=== PATIENT | male | born 1965 | race Hispanic/Latino ===

== ENCOUNTER 2018-05-28 20:41 | Emergency (ER) | payer OTHER ==
[2018-05-28 20:53] VITALS: RESP 17
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
[2018-05-28 22:24] LABS: HEMOGLOBIN 14.6 g/dL (14.0-18.0); MEAN CELL VOLUME 85.2 fl (80.0-105.0); MEAN CORPUSCULAR HGB CONC 35.2 g/dl (31.0-37.0); MEAN PLATELET VOLUME 10.9 fl (7.0-11.0); RBC 4.87 10^6/uL (3.5-6.1); RED CELL DISTRIBUTION WIDTH 13.3 % (11.5-14.5); WHITE BLOOD COUNT 6.9 10^3/ul (4.5-11.0)
[2018-05-28 22:35] LABS: INR 0.99 (0.93-1.08); PARTIAL THROMBOPLASTIN TIME 29.2 Seconds (25.1-36.5); PROTHROMBIN TIME 11.3 SECONDS (9.4-12.5)
[2018-05-28 22:37] LABS: ALB/GLOB RATIO 1.4 (1.1-1.8); ALBUMIN 4.1 g/dL (3.0-4.8); ALT/SGPT 52 U/L (7-56); AST/SGOT 25 U/L (17-59); BLOOD UREA NITROGEN 17 mg/dL (7-21); CALCIUM 9.5 mg/dL (8.4-10.5); GFR AFRICAN-AMERICAN > 60; GFR NON-AFRICAN AMERICAN > 60
[2018-05-28 22:48] LABS: B-TYPE NATRIURETIC PEPTIDE 45.7 pg/mL (0-450); TROPONIN I < 0.01 ng/mL
[2018-05-29 01:50] VITALS: BP 148/94; PULSE 72; TEMP 98.2; O2SAT 98
--- NOTE | 2018-05-29 08:40 | RAD ---
Date of service: 05/28/2018 HISTORY: medical clearance COMPARISON: No prior. FINDINGS: LUNGS: The lungs are well inflated. No focal consolidation. . PLEURA: No significant pleural effusion identified, no pneumothorax apparent. CARDIOVASCULAR: Normal. OSSEOUS STRUCTURES: No significant abnormalities. VISUALIZED UPPER ABDOMEN: Normal. OTHER FINDINGS: None. IMPRESSION: No active pulmonary disease.
--- NOTE | 2018-05-29 09:27 | CARD ---
APPROVED REPORT Date of service: 05/28/2018 EKG Measurement Heart [id number] ND [id number] <Conclusion> Normal sinus rhythm Normal ECG
[2018-05-29 18:45] LABS: LYME IGM NEGATIVE (NEGATIVE)
[2018-05-29 18:59] LABS: LYME IGG NEGATIVE (NEGATIVE)
--- NOTE | 2018-05-29 20:11 | US ---
HISTORY: Leg pain and swelling. Evaluate for DVT PHYSICIAN(S): Watson Mercedes MD. TECHNIQUE: Duplex sonography and color-flow Doppler with graded compression were used to evaluate the deep venous systems of both lower extremities. FINDINGS: The visualized deep venous systems of both lower extremities are sonographically normal and compressible. Normal wave forms and augmentation are seen. There is no sonographic evidence for deep venous thrombosis in the visualized segments of both lower extremities. IMPRESSION: No sonographic evidence for deep venous thrombosis in the visualized segments of both lower extremities.
== END 2018-05-29 01:50 | disposition home or self-care (01) ==
LOC: MERGE 20:41 → ED 20:41
DX: M25.562 Pain in left knee (principal); M25.561 Pain in right knee

== ENCOUNTER 2018-09-29 00:47 | Emergency (ER) | payer OTHER ==
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
[2018-09-29 02:15] LABS: BASO # 0.08 K/mm3 (0.0-2.0); BASO % 1.4 % (0.0-3.0); EOS # 0.4 (0.0-0.7); EOS % 6.5 % (1.5-5.0); GRAN # 2.89 (1.4-6.5); GRAN % 51.9 % (50.0-68.0); HEMOGLOBIN 14.3 g/dL (14.0-18.0); LYMPH # 1.8 (1.2-3.4); LYMPH % 32.1 % (22.0-35.0); MEAN CORPUSCULAR HGB CONC 34.5 g/dl (31.0-37.0); MEAN PLATELET VOLUME 11.1 fl (7.0-11.0); MONO # 0.5 (0.1-0.6); MONO % 8.1 % (1.0-6.0); RBC 4.77 10^6/uL (3.5-6.1); WHITE BLOOD COUNT 5.6 10^3/uL (4.5-11.0)
[2018-09-29 02:27] LABS: ALB/GLOB RATIO 1.3 (1.1-1.8); ALBUMIN 4.3 g/dL (3.0-4.8); ALT/SGPT 46 U/L (7-56); AST/SGOT 30 U/L (17-59); BLOOD UREA NITROGEN 22 mg/dL (7-21); CALCIUM 9.9 mg/dL (8.4-10.5); GFR NON-AFRICAN AMERICAN > 60
[2018-09-29 02:50] VITALS: PULSE 72
[2018-09-29 04:07] VITALS: BP 156/91; RESP 18; O2SAT 97
--- NOTE | 2018-09-29 09:01 | RAD ---
HISTORY: h/o lyme disease w/ mireles's palsy COMPARISON: Chest x-ray performed 05/28/18 TECHNIQUE: Chest, one view. FINDINGS: Examination limited by habitus and slight patient obliquity. LUNGS: Mild atelectasis or scarring in the right and left hilar regions. No focal consolidation. Please note that chest x-ray has limited sensitivity for the detection of pulmonary masses. PLEURA: No significant pleural effusion identified. No definite pneumothorax . CARDIOVASCULAR: Cardiomegaly. Atherosclerotic calcification of the aorta. OSSEOUS STRUCTURES: No acute osseous abnormality identified. VISUALIZED UPPER ABDOMEN: Unremarkable. OTHER FINDINGS: None. IMPRESSION: Cardiomegaly. Mild atelectasis or scarring at the right and left hilar regions.
--- NOTE | 2018-09-29 13:45 | CARD ---
APPROVED REPORT Date of service: 09/29/2018 EKG Measurement Heart [id number] IN [id number] <Conclusion> Normal sinus rhythm Normal ECG
== END 2018-09-29 03:15 | disposition home or self-care (01) ==
LOC: ED 00:47
DX: G51.0 Bell's palsy (principal); A69.20 Lyme disease, unspecified; Z87.891 Personal history of nicotine dependence
CPT/HCPCS: 71045; 80053; 83735; 85025; 93005; 96374; 99285; J2930